=== PATIENT | female | born 1995 | race Caucasian/White ===

== ENCOUNTER 2018-03-26 14:33 | Emergency (ER) | payer OTHER | END 2018-03-26 17:26 | disposition home or self-care (01) | LOC: FTE 14:33 | DX: T18.9XXA Foreign body of alimentary tract, part unspecified, initial encounter (principal); X58.XXXA Exposure to other specified factors, initial encounter; Y92.9 Unspecified place or not applicable | CPT/HCPCS: 70490; 99284-25 ==